=== PATIENT | female | born 1950 | race Caucasian/White ===

== ENCOUNTER 2018-09-20 12:46 | Emergency (ER) | payer OTHER ==
[~2018-09-20] VITALS: Ht 149.9 cm; Wt 63.5 kg
[~2018-09-20 12:46] MED LIST: AMOX1TAB12 PO; BENTYL10 MG/ML; INTESTINEX1 CAP PO; IOPHEN DM-100 MG/5 M PO; LEVSIN/SL0.125 MG PO; PEPCID20 MG PO; PRILOSEC20 MG; PROTONIX40 MG PO; REGLAN 10ML5 MG/ML; TUSSI PRES-B L120 M1 PO
[2018-09-20] MEDS ORDERED: ZANTAC150 M3 (13:14)
== END 2018-09-20 15:44 | disposition home or self-care (01) ==
LOC: ER 12:46
DX: B02.8 Zoster with other complications (principal)

== ENCOUNTER 2018-10-02 18:11 | Emergency (ER) | payer OTHER ==
[~2018-10-02] VITALS: Ht 149.9 cm; Wt 63.5 kg
[~2018-10-02 18:11] MED LIST changes: +ZANTAC150 M3
== END 2018-10-02 21:00 | disposition home or self-care (01) ==
LOC: ER 18:11
DX: R10.13 Epigastric pain (principal)

== ENCOUNTER 2018-10-07 18:12 | Emergency (ER) | payer OTHER ==
[~2018-10-07] VITALS: Ht 149.9 cm; Wt 63.5 kg
[2018-10-07] MEDS ORDERED: [UNRECOGNIZED DRUG - OTHER] (18:47)
[2018-10-07] MEDS ORDERED: PANADOL EXTRA500 MG (18:47)
== END 2018-10-07 23:26 | disposition home or self-care (01) ==
LOC: ER 18:12
DX: K29.60 Other gastritis without bleeding (principal); B02.29 Other postherpetic nervous system involvement

== ENCOUNTER 2022-01-31 10:10 | Emergency (ER) | payer OTHER ==
[~2022-01-31] VITALS: Ht 149.9 cm; Wt 59.9 kg
[~2022-01-31 10:10] MED LIST changes: +PANADOL EXTRA500 MG; +[UNRECOGNIZED DRUG - OTHER]
== END 2022-01-31 14:27 | disposition home or self-care (01) ==
LOC: ER 10:10
DX: R42 Dizziness and giddiness (principal); Z88.0 Allergy status to penicillin; I10 Essential (primary) hypertension

== ENCOUNTER 2023-01-13 09:57 | Inpatient (IN) | payer OTHER ==
[~2023-01-13] VITALS: Ht 149.9 cm; Wt 59.9 kg
[2023-01-17] MEDS ORDERED: Tylenol #3 PO (08:55)
[2023-01-17] MEDS ORDERED: NAPR500T14 PO (08:55)
== END 2023-01-17 14:03 | disposition home or self-care (01) | DRG 748 ==
LOC: OB/GYN 01-16 05:36 → O/R 01-16 05:36 → SURH 01-16 10:45 → OB/GYN 01-16 15:27
PROVIDERS: ADMIT Obstetrics & Gynecology; ATTEND Obstetrics & Gynecology
PROC: 0JQC0ZZ Repair Pelvic Region Subcutaneous Tissue and Fascia, Open Approach (ICD-10-PCS; 2023-01-16)
PROC: 0USG0ZZ Reposition Vagina, Open Approach (ICD-10-PCS; 2023-01-16)
PROC: 0TJB8ZZ Inspection of Bladder, Via Natural or Artificial Opening Endoscopic (ICD-10-PCS; 2023-01-16)
PROC: 0JQC0ZZ Repair Pelvic Region Subcutaneous Tissue and Fascia, Open Approach (ICD-10-PCS; principal; 2023-01-16 10:45)
DX: N99.3 Prolapse of vaginal vault after hysterectomy (principal)

== ENCOUNTER 2023-03-20 22:19 | Emergency (ER) | payer OTHER ==
[~2023-03-20] VITALS: Ht 170.2 cm; Wt 63.5 kg
[~2023-03-20 22:19] MED LIST changes: +NAPR500T14 PO; +Tylenol #3 PO
[2023-03-21 00:09] LABS: HEMATOCRIT 40.7 % (36.0-45.00); HEMOGLOBIN 12.9 g/dL (12.0-15.00); MEAN CELL VOLUME 84.7 fL (80.00-100.00); MEAN CORPUSCULAR HEMOGLOBIN 26.8 pg (27.00-32.0); MEAN CORPUSCULAR HGB CONC 31.7 g/dl (32.0-36.0); PLATELET COUNT 220 K/uL (150-450); RED CELL DISTRIBUTION WIDTH 14.2 % (11.5-14.5); URINE APPEARANCE Turbid; URINE BILIRRUBIN Small (NEGATIVE); URINE BLOOD Moderate; URINE COLOR Red; URINE GLUCOSE Negative (NEGATIVE); URINE LEUKOCYTE Large; URINE NITRATE Positive; URINE UROBILINOGEN 0.2 E.U./dl
[2023-03-21 00:12] LABS: URINE EPITHELIAL CELLS 10.2 uL (0.0-38.8); URINE WBC 4092.8 uL (0.0-23.2)
[2023-03-21 00:13] LABS: URINE PROTEIN 100 (NEGATIVE); URINE RBC > 10558.9 uL (0.0-20.8)
[2023-03-21 00:15] LABS: URINE BACTERIA > 9821.2 uL (0.0-1933)
[2023-03-21] MEDS ORDERED: PYRIDIUM DS200 MG PO (03:06)
[2023-03-21] MEDS ORDERED: CIPRO500 MG PO (03:06)
== END 2023-03-21 03:09 ==
LOC: ER
DX: N30.81 Other cystitis with hematuria (principal); Z88.0 Allergy status to penicillin
CPT/HCPCS: 36415; 96365; 99284; J0744; J1885